=== PATIENT | female | born 1995 | race Caucasian/White ===

== ENCOUNTER 2018-02-19 15:55 | Emergency (ER) | payer OTHER | END 2018-02-19 16:49 | disposition home or self-care (01) | LOC: M ED 15:55 | DX: J45.909 Unspecified asthma, uncomplicated (principal); Z79.51 Long term (current) use of inhaled steroids; F17.210 Nicotine dependence, cigarettes, uncomplicated; F12.10 Cannabis abuse, uncomplicated | CPT/HCPCS: 99283 ==

== ENCOUNTER → 2018-08-14 | Outpatient (CLI) | payer OTHER ==
[~2018-08-14] MED LIST: ALBU17IN2 INH; BENZ200C70 PO; FLON1SPR NARES; MUCI600T37 PO
--- NOTE | 2018-08-14 09:01 | REP ---
Clinical: thoracic back pain. Technique: AP, lateral views of the thoracic spine. Findings: Alignment and kyphosis is maintained. Vertebral bodies intact. No acute fracture / compression injury or subluxation. No degenerative changes. Paravertebral soft tissues are normal. Impression: Normal thoracic spine series. Electronically Signed by Ivan Field MD 08/14/2018 08:53 A
--- NOTE | 2018-08-14 09:03 | REP ---
Clinical: Back pain. Technique: AP and lateral views of the lumbar spine. Findings: Two views of the lumbosacral spine demonstrate satisfactory alignment and lordosis without acute fracture / compression injury or subluxation. No significant degenerative changes are appreciated. Very minimal disc space narrowing at L5-S1 cannot be excluded. Impression: Minimal disc space narrowing at L5-S1 cannot be excluded. Otherwise normal age appropriate examination. No acute fracture / compression injury or subluxation. Electronically Signed by Iavn Field MD 08/14/2018 08:54 A
--- NOTE | 2018-08-14 09:04 | REP ---
Clinical: Cervical neck pain. Technique: AP, lateral views of the cervical spine. Findings: Straightening of normal lordosis is nonspecific. Examination is otherwise relatively normal. No acute fracture / compression injury or subluxation. Intervertebral disc spaces appear normal. Surrounding soft tissues are unremarkable. Impression: Straightening of normal lordosis. Otherwise essentially age-appropriate, normal cervical spine radiographs. Electronically Signed by Ivan Field MD 08/14/2018 08:56 A
== END ==
LOC: M RAD 08:21
PROVIDERS: ATTEND Chiropractor
DX: M51.37 Other intervertebral disc degeneration, lumbosacral region (principal)